=== PATIENT | female | born 1975 | race Caucasian/White ===

== ENCOUNTER 2020-08-09 18:11 | Emergency (ER) | payer SELFPAY ==
[~2020-08-09] VITALS: Ht 160 cm; Wt 108.9 kg
[~2020-08-09 18:11] MED LIST: CIPRO500 MG PO; MOTRIN800 MG; TYLENOL # 31 EA
== END 2020-08-09 20:04 | disposition home or self-care (01) ==
LOC: ER 18:59
DX: H92.01 Otalgia, right ear (principal); R09.81 Nasal congestion
CPT/HCPCS: 99282